=== PATIENT | male | born 1980 | race Caucasian/White ===

== ENCOUNTER 2017-05-28 13:22 | Outpatient (CLI) | payer OTHER ==
[~2017-05-28] VITALS: Ht 177.8 cm; Wt 78.0 kg
[~2017-05-28 13:22] MED LIST: ALBU17IN INH; AMBI10TA PO; GABA-283 PO; PROV90AE; ZIPR40CA11 PO
[2017-05-28] MEDS ORDERED: NS 1,000 ML IV ONE (13:30)
[2017-05-28] MEDS ORDERED: PROPOFOL 200 MG/20 ML VIAL As Ordered ONE ×2 (15:03→15:07)
[2017-05-28] MEDS ORDERED: LIDOCAINE 2% INJ 100 MG/5 ML SDV (FOR ANES.) As Ordered ONE (15:03)
[2017-05-28 15:45] VITALS: BP 113/81
--- NOTE | 2017-05-28 16:59 | ROOR ---
Patient Name: Diego Kamara Procedure Date: 05/28/2017 3:04 PM Date of : 1980 Age: 36 Room: [facility] Gender: Male Note Status: Finalized Procedure: Colonoscopy Indications: Abnormal CT of the GI tract Providers: Anthony Orr MD Referring MD: TANIA BRAVO MD Requesting Provider: Medicines: Monitored Anesthesia Care Complications: No immediate complications. Procedure: Pre-Anesthesia Assessment: - Prior to the procedure, a History and Physical was performed, and patient medications and allergies were reviewed. The patient is competent. The risks and benefits of the procedure and the sedation options and risks were discussed with the patient. All questions were answered and informed consent was obtained. Patient identification and proposed procedure were verified by the physician, the nurse and the anesthesiologist in the procedure room. Mental Status Examination: alert and oriented. Airway Examination: normal oropharyngeal airway and neck mobility. Respiratory Examination: clear to auscultation. CV Examination: normal. Prophylactic Antibiotics: The patient does not require prophylactic antibiotics. Prior Anticoagulants: The patient has taken no previous anticoagulant or antiplatelet agents. ASA Grade Assessment: II - A patient with mild systemic disease. After reviewing the risks and benefits, the patient was deemed in satisfactory condition to undergo the procedure. The anesthesia plan was to use monitored anesthesia care (MAC). Immediately prior to administration of medications, the patient was re-assessed for adequacy to receive sedatives. The heart rate, respiratory rate, oxygen saturations, blood pressure, adequacy of pulmonary ventilation, and response to care were monitored throughout the procedure. The physical status of the patient was re-assessed after the procedure. The Colonoscope was introduced through the anus and advanced to the terminal ileum, with identification of the appendiceal orifice and IC valve. The colonoscopy was performed without difficulty. The patient tolerated the procedure well. The quality of the bowel preparation was good. The terminal ileum, ileocecal valve, appendiceal orifice, and rectum were photographed. Scope insertion time was 3 minutes. Scope withdrawal time was 8 minutes. The total duration of the procedure was 14 minutes. Findings: The perianal and digital rectal examinations were normal. Patchy mild inflammation characterized by altered vascularity and erythema was found from sigmoid to descending colon. Biopsies were taken with a cold forceps for histology. Verification of patient identification for the specimen was done by the physician and nurse using the patient's name, date and medical record number. Estimated blood loss was minimal. Multiple small-mouthed diverticula were found from sigmoid to transverse colon. There was no evidence of diverticular bleeding. Non-bleeding external and internal hemorrhoids were found during retroflexion. The hemorrhoids were small. Impression: - Patchy mild inflammation was found from sigmoid to descending colon secondary to colitis. Biopsied. - Moderate diverticulosis from sigmoid to transverse colon. There was no evidence of diverticular bleeding. - Non-bleeding external and internal hemorrhoids. Recommendation: - Patient has a contact number available for emergencies. The signs and symptoms of potential delayed complications were discussed with the patient. Return to normal activities tomorrow. Written discharge instructions were provided to the patient. - High fiber diet. - Continue present medications. - Await pathology results. - Repeat colonoscopy at age 51 for screening purposes. - Return to GI clinic as previously scheduled. - Return to primary care physician. Anthony Orr MD Anthony Orr MD 05/28/2017 4:59:18 PM This report has been signed electronically. Number of Addenda: 0 Note Initiated On: 05/28/2017 3:04 PM Estimated Blood Loss: Estimated blood loss was minimal.
== END 2017-05-28 15:55 | disposition home or self-care (01) ==
LOC: M OPP 13:22
PROVIDERS: ATTEND Internal Medicine Gastroenterology
DX: R93.3 Abnormal findings on diagnostic imaging of other parts of digestive tract (principal); K63.89 Other specified diseases of intestine; K57.30 Diverticulosis of large intestine without perforation or abscess without bleeding; K64.4 Residual hemorrhoidal skin tags; K64.8 Other hemorrhoids; K52.9 Noninfective gastroenteritis and colitis, unspecified; R07.89 Other chest pain; R01.1 Cardiac murmur, unspecified; R06.02 Shortness of breath; Z87.19 Personal history of other diseases of the digestive system; F41.9 Anxiety disorder, unspecified; F32.9 Major depressive disorder, single episode, unspecified; F20.9 Schizophrenia, unspecified; G47.8 Other sleep disorders; R06.83 Snoring; J45.909 Unspecified asthma, uncomplicated; F17.210 Nicotine dependence, cigarettes, uncomplicated; F12.20 Cannabis dependence, uncomplicated; Z88.8 Allergy status to other drugs, medicaments and biological substances; Z79.899 Other long term (current) drug therapy; Z80.42 Family history of malignant neoplasm of prostate; Z80.1 Family history of malignant neoplasm of trachea, bronchus and lung

== ENCOUNTER 2017-11-05 13:13 | Day surgery (SDC) | payer OTHER ==
[2017-11-05] MEDS: LR 1,000 ML IV ×2 (14:40→16:45)
[2017-11-05] MEDS ORDERED: fentaNYL 100 MCG/2 ML INJECTION (J3010) As Ordered ×2 (15:44→16:39)
[2017-11-05] MEDS ORDERED: PROPOFOL 200 MG/20 ML VIAL As Ordered (15:44)
[2017-11-05] MEDS ORDERED: LIDOCAINE 2% INJ 100 MG/5 ML SDV (FOR ANES.) As Ordered (15:44)
[2017-11-05] MEDS ORDERED: MIDAZOLAM INJ 2 MG/2 ML VIAL (J2250) As Ordered (15:44)
[2017-11-05] MEDS ORDERED: ONDANSETRON 4MG/2ML VIAL (J2405) As Ordered (15:46)
[2017-11-05] MEDS ORDERED: dexameTHASONE 4 MG/ML 1ML VIAL (J1100) As Ordered (15:46)
[2017-11-05] MEDS: LIDOCAINE 1% SDV INJ 30 ML VIAL As Ordered (16:21)
[2017-11-05] MEDS: BACITRACIN OINT 30GM As Ordered (16:23)
[2017-11-05] MEDS: BUPIVACAINE HCL 0.25% 30 ML VIAL As Ordered (16:23)
[2017-11-05] MEDS ORDERED: PERCOCET 5MG/325MG TAB As Ordered (16:39)
[2017-11-05] MEDS: fentaNYL 100 MCG/2 ML INJECTION (J3010) IV ×4 (16:40→17:01)
[2017-11-05] MEDS: PERCOCET 5MG/325MG TAB PO ×2 (16:40→17:07)
[2017-11-05] MEDS ORDERED: ONDANSETRON 4MG/2ML VIAL (J2405) IV (16:45)
[2017-11-05] MEDS ORDERED: PERCOCET 5MG/325MG TAB PO ×3 (16:45)
== END 2017-11-05 17:50 | disposition home or self-care (01) ==
LOC: M SDC 13:13
DX: Q55.22 Retractile testis (principal); R01.1 Cardiac murmur, unspecified; K52.9 Noninfective gastroenteritis and colitis, unspecified; R29.898 Other symptoms and signs involving the musculoskeletal system; F41.9 Anxiety disorder, unspecified; F32.9 Major depressive disorder, single episode, unspecified; R51 Headache; F20.9 Schizophrenia, unspecified; Z88.8 Allergy status to other drugs, medicaments and biological substances; Z79.899 Other long term (current) drug therapy; Z87.820 Personal history of traumatic brain injury; Z72.0 Tobacco use
CPT/HCPCS: 54640

== ENCOUNTER 2018-02-14 09:31 | Day surgery (SDC) | payer OTHER ==
[2018-02-14] MEDS ORDERED: GLYCOPYRROLATE INJ 0.2 MG/ML 2 ML VIAL As Ordered (12:16)
[2018-02-14] MEDS ORDERED: LIDOCAINE 2% INJ 100 MG/5 ML SDV (FOR ANES.) As Ordered (12:16)
[2018-02-14] MEDS ORDERED: MIDAZOLAM INJ 2 MG/2 ML VIAL (J2250) As Ordered (12:16)
[2018-02-14] MEDS ORDERED: ONDANSETRON 4MG/2ML VIAL (J2405) As Ordered (12:16)
[2018-02-14] MEDS ORDERED: fentaNYL 250 MCG/5 ML INJECTION (J3010) As Ordered (12:16)
[2018-02-14] MEDS ORDERED: dexameTHASONE 4 MG/ML 1ML VIAL (J1100) As Ordered (12:16)
[2018-02-14] MEDS ORDERED: PROPOFOL 200 MG/20 ML VIAL As Ordered (12:16)
[2018-02-14] MEDS ORDERED: BUPIVACAINE HCL 0.25% 30 ML VIAL As Ordered (12:17)
[2018-02-14] MEDS: LIDOCAINE 1% SDV INJ 30 ML VIAL As Ordered (12:18)
[2018-02-14] MEDS: BACITRACIN OINT 30GM As Ordered (12:20)
[2018-02-14] MEDS: BUPIVACAINE HCL 0.25% 30 ML VIAL As Ordered (12:20)
[2018-02-14] MEDS ORDERED: LR 1,000 ML IV (12:45)
[2018-02-14] MEDS ORDERED: fentaNYL 100 MCG/2 ML INJECTION (J3010) IV (12:45)
[2018-02-14] MEDS ORDERED: ONDANSETRON 4MG/2ML VIAL (J2405) IV (12:45)
[2018-02-14] MEDS ORDERED: MEPERIDINE INJ 25 MG/ML VIAL (J2175) IV (12:45)
[2018-02-14] MEDS ORDERED: METOCLOPRAMIDE INJ 10MG/2ML VIAL (J2765) IV (12:45)
[2018-02-14] MEDS ORDERED: PERCOCET 5MG/325MG TAB PO ×2 (12:45)
[2018-02-14] MEDS: PERCOCET 5MG/325MG TAB PO ×2 (13:10→13:40)
== END 2018-02-14 14:20 | disposition home or self-care (01) ==
LOC: M SDC 14:20
DX: N50.811 Right testicular pain (principal); Q55.22 Retractile testis; F41.9 Anxiety disorder, unspecified; F32.9 Major depressive disorder, single episode, unspecified; F17.210 Nicotine dependence, cigarettes, uncomplicated; G25.81 Restless legs syndrome; Z88.8 Allergy status to other drugs, medicaments and biological substances; Z79.899 Other long term (current) drug therapy
CPT/HCPCS: 54640